=== PATIENT | female | born 1955 | race African-American/Black ===

== ENCOUNTER 2017-03-23 10:36 | Emergency (ER) | payer SELFPAY ==
[~2017-03-23] VITALS: Ht 180.3 cm; Wt 116.0 kg
[~2017-03-23 10:36] MED LIST: EXEN2PEN SQ; GABA-290 PO; GLIP10TA10 PO; HYDR25TA PO; METF10002 PO; SIMV40TA5 PO
[2017-03-23] MEDS ORDERED: ASPIRIN 81MG TABLET PO ONE (11:00)
[2017-03-23 11:39] LABS: PROTHROMBIN TIME 10.2 sec (9.4-11.6)
[2017-03-23 11:45] LABS: BASOPHILS % 1.1 % (0.0-2.0); EOSINOPHILS % 6.2 % (0.0-5.0); HEMATOCRIT. 39.5 % (36.0-48.0); HEMOGLOBIN. 12.9 g/dL (12.0-16.0); LYMPHOCYTES % 36.3 % (20.0-50.0); MEAN CORPUSCULAR HEMOGLOBIN 27.8 pg (28.0-32.0); MEAN CORPUSCULAR VOLUME 85.3 fL (81.0-99.0); MEAN PLATELET VOLUME 11.1 fl (7.4-10.4); NEUTROPHILS % 50.4 % (40.0-76.0); PLATELET 220 x1000/uL (130-400); RED BLOOD CELL COUNT 4.63 mill/uL (4.2-5.4); RED CELL DISTRIBUTION WIDTH 13.7 % (11.6-14.6)
[2017-03-23 12:10] LABS: CARBON DIOXIDE 27 mEq/L (21-32); CHLORIDE 103 mEq/L (98-107)
[2017-03-23 12:16] LABS: TROPONIN I < 0.02 ng/mL (0.00-0.04)
[2017-03-23 15:51] VITALS: BP 113/68
== END 2017-03-23 16:42 | disposition home or self-care (01) ==
LOC: ER 10:36
DX: R07.9 Chest pain, unspecified (principal); I10 Essential (primary) hypertension; E78.00 Pure hypercholesterolemia, unspecified; E11.9 Type 2 diabetes mellitus without complications; Z88.8 Allergy status to other drugs, medicaments and biological substances
CPT/HCPCS: 36415; 71010; 80053; 83880; 84484; 85025; 85610; 93005; 99285; Z7610

== ENCOUNTER 2017-10-29 09:48 | Emergency (ER) | payer SELFPAY ==
[~2017-10-29] VITALS: Ht 180.3 cm; Wt 113.0 kg
[2017-10-29] MEDS ORDERED: TRAMADOL 50MG TABLET PO ONE (10:15)
[2017-10-29 13:30] VITALS: BP 138/78
== END 2017-10-29 13:34 | disposition home or self-care (01) ==
LOC: ER 09:48
DX: M25.561 Pain in right knee (principal); I10 Essential (primary) hypertension; M25.461 Effusion, right knee; E11.9 Type 2 diabetes mellitus without complications; E78.00 Pure hypercholesterolemia, unspecified; G89.29 Other chronic pain; Z88.1 Allergy status to other antibiotic agents; Z88.5 Allergy status to narcotic agent; Z98.51 Tubal ligation status; Z79.84 Long term (current) use of oral hypoglycemic drugs; Z90.49 Acquired absence of other specified parts of digestive tract; Z90.710 Acquired absence of both cervix and uterus
CPT/HCPCS: 73562; 93971; 99284; L1830; Z7610

== ENCOUNTER 2019-01-14 14:30 | Emergency (ER) | payer OTHER ==
[~2019-01-14] VITALS: Ht 180.3 cm; Wt 113.0 kg
[~2019-01-14 14:30] MED LIST changes: +METF-416 PO; -METF10002 PO
[2019-01-14 17:18] LABS: BASOPHILS % 1.2 % (0.0-2.0); EOSINOPHILS % 3.6 % (0.0-5.0); HEMATOCRIT. 38.5 % (36.0-48.0); HEMOGLOBIN. 12.6 g/dL (12.0-16.0); LYMPHOCYTES % 34.3 % (20.0-50.0); MEAN CORPUSCULAR HEMOGLOBIN 29.2 pg (28.0-32.0); MEAN CORPUSCULAR VOLUME 89.4 fL (81.0-99.0); MEAN PLATELET VOLUME 11.2 fl (7.4-10.4); MONOCYTES % 7.1 % (2.0-8.0); NEUTROPHILS % 53.8 % (40.0-76.0); PLATELET 235 x1000/uL (130-400); RED BLOOD CELL COUNT 4.31 mill/uL (4.2-5.4); RED CELL DISTRIBUTION WIDTH 13.6 % (11.6-14.6)
[2019-01-14 17:21] LABS: CHLORIDE 107 mEq/L (98-107)
[2019-01-14 17:44] LABS: CLARITY URINE CLEAR (CLEAR); COLOR URINE YELLOW (YELLOW); KETONES URINE TRACE (NEGATIVE); LEUKOCYTE ESTERASE URINE NEGATIVE (NEGATIVE); NITRITE URINE NEGATIVE (NEGATIVE); OCCULT BLOOD URINE NEGATIVE (NEGATIVE); PH URINE 5.5 (4.5-8.0); PROTEIN URINE NEGATIVE (NEGATIVE); SPECIFIC GRAVITY URINE 1.021 (1.005-1.030); UROBILINOGEN URINE 0.2 E.U./dL (0.2-1.0)
[2019-01-14] MEDS ORDERED: KETOROLAC 30MG/ML VIAL IV ONE (18:15)
[2019-01-14 18:35] VITALS: BP 136/81
== END 2019-01-14 19:03 | disposition home or self-care (01) ==
LOC: ER 14:30
DX: R10.31 Right lower quadrant pain (principal); R19.7 Diarrhea, unspecified; E11.9 Type 2 diabetes mellitus without complications; E78.00 Pure hypercholesterolemia, unspecified; Z90.49 Acquired absence of other specified parts of digestive tract; Z98.51 Tubal ligation status; Z90.710 Acquired absence of both cervix and uterus; Z88.8 Allergy status to other drugs, medicaments and biological substances; Z88.1 Allergy status to other antibiotic agents; Z88.6 Allergy status to analgesic agent; Z88.3 Allergy status to other anti-infective agents; Z88.2 Allergy status to sulfonamides; Z79.4 Long term (current) use of insulin
CPT/HCPCS: 36415; 74176; 80053; 81003; 83690; 85025; 85610; 96374; 99284; J1885

== ENCOUNTER 2019-01-15 11:37 | Emergency (ER) | payer OTHER ==
[~2019-01-15] VITALS: Ht 180.3 cm; Wt 113.0 kg
[2019-01-15] MEDS ORDERED: KETOROLAC 30MG/ML VIAL IV STA (16:19)
[2019-01-15] MEDS ORDERED: SODIUM CHLORIDE 0.9% 1,000 ML IV ONE (16:19)
[2019-01-15] MEDS ORDERED: ONDANSETRON HCL 4MG/2ML INJ IV STA (16:19)
[2019-01-15 16:41] LABS: BASOPHILS % 1.1 % (0.0-2.0); EOSINOPHILS % 5.2 % (0.0-5.0); HEMATOCRIT. 37.5 % (36.0-48.0); HEMOGLOBIN. 12.4 g/dL (12.0-16.0); LYMPHOCYTES % 31.8 % (20.0-50.0); MEAN CORPUSCULAR HEMOGLOBIN 29.1 pg (28.0-32.0); MEAN CORPUSCULAR VOLUME 88.2 fL (81.0-99.0); MEAN PLATELET VOLUME 10.2 fl (7.4-10.4); MONOCYTES % 6.3 % (2.0-8.0); NEUTROPHILS % 55.6 % (40.0-76.0); PLATELET 288 x1000/uL (130-400); RED BLOOD CELL COUNT 4.25 mill/uL (4.2-5.4); RED CELL DISTRIBUTION WIDTH 13.6 % (11.6-14.6)
[2019-01-15 16:45] LABS: CHLORIDE 108 mEq/L (98-107)
[2019-01-15 16:46] LABS: PROTHROMBIN TIME 10.2 sec (9.6-11.0)
[2019-01-15 18:23] LABS: CLARITY URINE CLEAR (CLEAR); COLOR URINE YELLOW (YELLOW); KETONES URINE NEGATIVE (NEGATIVE); LEUKOCYTE ESTERASE URINE NEGATIVE (NEGATIVE); NITRITE URINE NEGATIVE (NEGATIVE); OCCULT BLOOD URINE NEGATIVE (NEGATIVE); PH URINE 5.5 (4.5-8.0); PROTEIN URINE NEGATIVE (NEGATIVE); SPECIFIC GRAVITY URINE 1.023 (1.005-1.030); UROBILINOGEN URINE 0.2 E.U./dL (0.2-1.0)
[2019-01-15 19:45] VITALS: BP 154/71
== END 2019-01-15 20:39 | disposition home or self-care (01) ==
LOC: ER 11:37
DX: R10.2 Pelvic and perineal pain (principal); M54.30 Sciatica, unspecified side; I10 Essential (primary) hypertension; E11.9 Type 2 diabetes mellitus without complications; E78.00 Pure hypercholesterolemia, unspecified; Z90.710 Acquired absence of both cervix and uterus; Z88.8 Allergy status to other drugs, medicaments and biological substances; Z79.84 Long term (current) use of oral hypoglycemic drugs; Z90.49 Acquired absence of other specified parts of digestive tract
CPT/HCPCS: 36415; 76830; 76856; 80053; 81003; 83690; 85025; 85610; 93970; 96361; 96374; 99284; J1885; J7030; J2405

== ENCOUNTER 2022-01-14 17:37 | Emergency (ER) | payer OTHER ==
[~2022-01-14] VITALS: Ht 180.3 cm; Wt 107.0 kg
[~2022-01-14 17:37] MED LIST changes: +SIMV-46 PO; -SIMV40TA5 PO
[2022-01-14 17:55] VITALS: BP 118/71
[2022-01-14] MEDS ORDERED: MUPI1OIN4 TP (21:27)
[2022-01-14] MEDS ORDERED: NEOMY SULF/BACITRAC ZN/POLY OINT 28GM TOP SCH (21:30)
== END 2022-01-14 21:49 | disposition home or self-care (01) ==
LOC: ER 19:22
DX: M79.644 Pain in right finger(s) (principal); E11.9 Type 2 diabetes mellitus without complications; E78.00 Pure hypercholesterolemia, unspecified; Z90.49 Acquired absence of other specified parts of digestive tract; Z79.84 Long term (current) use of oral hypoglycemic drugs; Z98.890 Other specified postprocedural states; Z90.710 Acquired absence of both cervix and uterus; Z88.8 Allergy status to other drugs, medicaments and biological substances; Z88.3 Allergy status to other anti-infective agents
CPT/HCPCS: 99283

== ENCOUNTER 2022-02-03 13:38 | Emergency (ER) | payer OTHER ==
[~2022-02-03] VITALS: Ht 180.3 cm; Wt 106.0 kg
[~2022-02-03 13:38] MED LIST changes: +MUPI1OIN4 TP
[2022-02-03 14:02] VITALS: BP 155/74
[2022-02-03] MEDS ORDERED: BACITRACIN ZINC OINT UDPKT TOP ONE (16:00)
[2022-02-03] MEDS ORDERED: LIDOCAINE HCL 1% 20ML VIAL (Pyxis) INJ INFIL ONE (16:00)
[2022-02-03] MEDS ORDERED: DOXY-326 PO ×3 (16:59→17:24)
[2022-02-03] MEDS ORDERED: IBUP-2029 PO ×3 (16:59→17:24)
[2022-02-03] MEDS ORDERED: MUPI15CR11 TP ×3 (16:59→17:24)
== END 2022-02-03 17:30 | disposition home or self-care (01) ==
LOC: ER 14:25
DX: L03.011 Cellulitis of right finger (principal); E11.9 Type 2 diabetes mellitus without complications; Z88.8 Allergy status to other drugs, medicaments and biological substances; Z88.1 Allergy status to other antibiotic agents; Z79.899 Other long term (current) drug therapy; E78.00 Pure hypercholesterolemia, unspecified; Z98.51 Tubal ligation status; Z90.49 Acquired absence of other specified parts of digestive tract
CPT/HCPCS: 99283; J3490

== ENCOUNTER 2023-06-23 16:05 | Emergency (ER) | payer MEDICARE, OTHER ==
[~2023-06-23] VITALS: Ht 180.3 cm; Wt 108.9 kg
[~2023-06-23 16:05] MED LIST changes: +DOXY-456 PO; +IBUP-2029 PO; +MUPI15CR11 TP
[2023-06-23 16:22] VITALS: BP 129/56; PULSE 98; RESP 16; TEMP 98.2; O2SAT 99
== END 2023-06-23 18:55 | disposition left against medical advice (07) ==
LOC: ER 16:05
DX: Z53.21 Procedure and treatment not carried out due to patient leaving prior to being seen by health care provider (principal)
CPT/HCPCS: 99281

== ENCOUNTER 2024-02-21 13:38 | Emergency (ER) | payer MEDICARE, OTHER ==
[~2024-02-21] VITALS: Ht 175.3 cm; Wt 107.0 kg
[2024-02-21 13:50] VITALS: TEMP 98.6; O2SAT 98
[2024-02-21 14:45] LABS: BASOPHILS % 0.4 % (0.0-2.0); EOSINOPHILS % 5.4 % (0.0-5.0); HEMOGLOBIN. 11.8 g/dL (12.0-16.0); LYMPHOCYTES % 36.4 % (20.0-50.0); MEAN CORPUSCULAR HEMOGLOBIN 28.3 pg (28.0-32.0); MEAN CORPUSCULAR HGB CONC 31.8 g/dL (31.0-37.0); MEAN CORPUSCULAR VOLUME 89.1 fL (81.0-99.0); MEAN PLATELET VOLUME 10.1 fl (7.4-10.4); MONOCYTES % 6.4 % (2.0-8.0); NEUTROPHILS % 51.4 % (40.0-76.0); PLATELET 255 x1000/uL (130-400); RED BLOOD CELL COUNT 4.15 mill/uL (4.2-5.4); RED CELL DISTRIBUTION WIDTH 14.6 % (11.6-14.6); WHITE BLOOD COUNT 7.4 x1000/uL (4.5-11.0)
[2024-02-21 14:51] LABS: CHLORIDE 107 mEq/L (98-107); POTASSIUM 4.6 mEq/L (3.5-5.1); SODIUM 138 mEq/L (136-145)
[2024-02-21 14:52] LABS: CARBON DIOXIDE 29 mEq/L (21-32)
[2024-02-21 14:53] LABS: CALCIUM 9.5 mg/dL (8.7-10.4)
[2024-02-21 14:57] LABS: CREATININE 1.1 mg/dL (0.6-1.0); GLUCOSE 160 mg/dL (70-105)
[2024-02-21 14:58] LABS: UREA NITROGEN BLOOD 17 mg/dL (9-23)
[2024-02-21 15:44] VITALS: BP 129/66; PULSE 66; RESP 16
== END 2024-02-21 15:47 | disposition home or self-care (01) ==
LOC: ER 13:38
DX: R60.9 Edema, unspecified (principal); E78.00 Pure hypercholesterolemia, unspecified; E11.9 Type 2 diabetes mellitus without complications; Z88.8 Allergy status to other drugs, medicaments and biological substances; Z88.1 Allergy status to other antibiotic agents; Z88.5 Allergy status to narcotic agent; Z79.899 Other long term (current) drug therapy; Z90.49 Acquired absence of other specified parts of digestive tract; Z98.51 Tubal ligation status; Z90.710 Acquired absence of both cervix and uterus
CPT/HCPCS: 36415; 71045; 80048; 83880; 85025; 93970; 99284

== ENCOUNTER 2024-04-01 21:25 | Emergency (ER) | payer MEDICARE, OTHER ==
[~2024-04-01] VITALS: Ht 180.3 cm; Wt 106.0 kg
[~2024-04-01 21:25] MED LIST changes: -DOXY-456 PO; +DOXY100C74 PO
[2024-04-01 21:49] VITALS: O2SAT 100
[2024-04-01] MEDS ORDERED: ACETAMINOPHEN 325MG TABLET PO ONE (22:00)
[2024-04-01] MEDS ORDERED: CYCLOBENZAPRINE 10MG TABLET PO ONE (22:00)
[2024-04-01 23:10] VITALS: BP 133/74; PULSE 83; RESP 16; TEMP 36.66960; O2SAT 100
[2024-04-01] MEDS: ACETAMINOPHEN 325MG TABLET PO NR (23:32)
[2024-04-01] MEDS: CYCLOBENZAPRINE 10MG TABLET PO NR (23:33)
== END 2024-04-01 23:50 | disposition home or self-care (01) ==
LOC: ER 21:25
DX: S90.31XA Contusion of right foot, initial encounter (principal); S20.212A Contusion of left front wall of thorax, initial encounter; E11.9 Type 2 diabetes mellitus without complications; E78.00 Pure hypercholesterolemia, unspecified; Z79.899 Other long term (current) drug therapy; Z98.51 Tubal ligation status; Z90.710 Acquired absence of both cervix and uterus; Z90.49 Acquired absence of other specified parts of digestive tract; Z88.8 Allergy status to other drugs, medicaments and biological substances; W18.39XA Other fall on same level, initial encounter; Y93.89 Activity, other specified; Y92.89 Other specified places as the place of occurrence of the external cause; Y99.8 Other external cause status
CPT/HCPCS: 71101; 73630; 99284

== ENCOUNTER 2024-06-14 08:39 | Emergency (ER) | payer MEDICARE, OTHER ==
[~2024-06-14] VITALS: Ht 180.3 cm; Wt 100.0 kg
[~2024-06-14 08:39] MED LIST changes: -GLIP10TA10 PO; +GLIP10TA17 PO
[2024-06-14 08:44] VITALS: O2SAT 100
[2024-06-14 08:52] VITALS: BP 150/68; PULSE 71; RESP 16; TEMP 99.5; O2SAT 100
[2024-06-14] MEDS ORDERED: FLUC100T42 PO (09:12)
[2024-06-14] MEDS ORDERED: CLIN-194 PO (09:12)
== END 2024-06-14 09:43 | disposition home or self-care (01) ==
LOC: ER 08:39
DX: J02.9 Acute pharyngitis, unspecified (principal); E78.00 Pure hypercholesterolemia, unspecified; E11.9 Type 2 diabetes mellitus without complications; Z88.0 Allergy status to penicillin; Z88.1 Allergy status to other antibiotic agents; Z88.5 Allergy status to narcotic agent; Z88.8 Allergy status to other drugs, medicaments and biological substances; Z79.899 Other long term (current) drug therapy; Z90.49 Acquired absence of other specified parts of digestive tract; Z90.710 Acquired absence of both cervix and uterus; Z98.51 Tubal ligation status
CPT/HCPCS: 99283

== ENCOUNTER 2024-06-17 11:17 | Emergency (ER) | payer MEDICARE, OTHER ==
[~2024-06-17] VITALS: Ht 180.3 cm; Wt 109.0 kg
[~2024-06-17 11:17] MED LIST changes: +CLIN-194 PO; +FLUC100T42 PO
[2024-06-17 11:21] VITALS: O2SAT 100
[2024-06-17 11:28] VITALS: BP 127/61; PULSE 80; RESP 16; TEMP 98.2; O2SAT 100
== END 2024-06-17 14:00 | disposition home or self-care (01) ==
LOC: ER 11:17
DX: J02.8 Acute pharyngitis due to other specified organisms (principal); B97.89 Other viral agents as the cause of diseases classified elsewhere; E11.9 Type 2 diabetes mellitus without complications; E78.00 Pure hypercholesterolemia, unspecified; Z79.899 Other long term (current) drug therapy; Z90.710 Acquired absence of both cervix and uterus; Z90.49 Acquired absence of other specified parts of digestive tract; Z98.51 Tubal ligation status; Z88.0 Allergy status to penicillin; Z88.1 Allergy status to other antibiotic agents; Z88.5 Allergy status to narcotic agent; Z88.8 Allergy status to other drugs, medicaments and biological substances
CPT/HCPCS: 99281

== ENCOUNTER 2024-11-20 21:01 | Emergency (ER) | payer MEDICARE, OTHER ==
[~2024-11-20] VITALS: Ht 172.7 cm; Wt 110.0 kg
[~2024-11-20 21:01] MED LIST changes: +DOXY-461 PO; -DOXY100C74 PO
[2024-11-20 21:14] VITALS: O2SAT 100
[2024-11-20 21:51] VITALS: BP 146/71; PULSE 67; RESP 18; TEMP 36.7; O2SAT 99
[2024-11-20] MEDS ORDERED: TETANUS AND DIPHTHERIA TOX/PF 0.5ML SYR (ADULT) IM ONE (22:00)
[2024-11-20] MEDS: TETANUS, DIPHTHERIA, PERTUSSIS VAC/PF 0.5ML (>10YR OLD) IM ONE (22:20)
== END 2024-11-20 23:04 | disposition home or self-care (01) ==
LOC: ER 21:01
DX: S61.411A Laceration without foreign body of right hand, initial encounter (principal); E11.9 Type 2 diabetes mellitus without complications; Z88.0 Allergy status to penicillin; Z88.1 Allergy status to other antibiotic agents; Z88.5 Allergy status to narcotic agent; Z88.8 Allergy status to other drugs, medicaments and biological substances; Z79.899 Other long term (current) drug therapy; W26.0XXA Contact with knife, initial encounter; Y93.89 Activity, other specified; Y92.89 Other specified places as the place of occurrence of the external cause; Y99.8 Other external cause status
CPT/HCPCS: 90471; 90714; 90715; 99283

== ENCOUNTER 2025-02-22 17:57 | Emergency (ER) | payer MEDICARE, OTHER ==
[~2025-02-22] VITALS: Ht 180.3 cm; Wt 77.0 kg
[2025-02-22 18:06] VITALS: TEMP 37; O2SAT 99
[2025-02-22] MEDS ORDERED: DOXY100C5 MT (19:35)
[2025-02-22] MEDS ORDERED: MUPI22OI2 TP (19:35)
[2025-02-22] MEDS ORDERED: CEPH500C2 MT (19:35)
[2025-02-22] MEDS ORDERED: ACET-2708 MT (19:35)
[2025-02-22 19:44] VITALS: BP 116/75; PULSE 82; RESP 14; O2SAT 99
[2025-02-22] MEDS ORDERED: FLUC150T46 MT (19:58)
== END 2025-02-22 20:03 | disposition home or self-care (01) ==
LOC: ER 18:09
DX: M79.674 Pain in right toe(s) (principal); E11.42 Type 2 diabetes mellitus with diabetic polyneuropathy; Z79.899 Other long term (current) drug therapy; Z88.0 Allergy status to penicillin; Z88.1 Allergy status to other antibiotic agents; Z88.5 Allergy status to narcotic agent; Z88.8 Allergy status to other drugs, medicaments and biological substances
CPT/HCPCS: 99283

== ENCOUNTER 2025-02-27 17:03 | Inpatient (IN) | payer MEDICARE, OTHER ==
[~2025-02-27] VITALS: Ht 180.3 cm; Wt 114.3 kg
[~2025-02-27 17:03] MED LIST changes: +ACET-2708 MT; +CEPH500C2 MT; +DOXY100C5 MT; +FLUC150T46 MT; +MUPI22OI2 TP
[2025-02-27 17:19] VITALS: O2SAT 100
[2025-02-27 19:54] LABS: BASOPHILS % 0.4 % (0.0-2.0); EOSINOPHILS % 5.0 % (0.0-5.0); HEMATOCRIT. 37.6 % (36.0-48.0); HEMOGLOBIN. 12.4 g/dL (12.0-16.0); LYMPHOCYTES % 30.3 % (20.0-50.0); MEAN PLATELET VOLUME 10.7 fl (7.4-10.4); MONOCYTES % 7.2 % (2.0-8.0); NEUTROPHILS % 57.1 % (40.0-76.0); PLATELET 244 x1000/uL (130-400); RED BLOOD CELL COUNT 4.33 mill/uL (4.2-5.4); RED CELL DISTRIBUTION WIDTH 14.0 % (11.6-14.6)
[2025-02-27 20:05] LABS: CREATININE 1.4 mg/dL (0.6-1.0); INR 1.0
[2025-02-27 20:06] LABS: UREA NITROGEN BLOOD 25 mg/dL (9-23)
[2025-02-27 20:07] LABS: ASPARTATE AMINOTRANSFERASE 27 IU/L (<34)
[2025-02-27 20:08] LABS: BILIRUBIN DIRECT 0.2 mg/dL (<=3.0); BILIRUBIN TOTAL 0.6 mg/dL (0.1-1.0); PROTEIN TOTAL 6.7 g/dL (6.0-8.3)
[2025-02-27 20:35] LABS: ERYTHROCYTE SEDIMENTATION RATE 22 mm/hr (0-30)
[2025-02-28] MEDS ORDERED: CLONIDINE 0.1MG TABLET PO PRN
[2025-02-28] MEDS ORDERED: ACETAMINOPHEN 325MG TABLET PO PRN
[2025-02-28] MEDS ORDERED: MAGNESIUM/ALUMINUM HYDROXIDE/SIMETHICONE 30ML UDC PO PRN
[2025-02-28] MEDS ORDERED: ONDANSETRON HCL 4MG/2ML INJ IV PRN
[2025-02-28] MEDS ORDERED: ZOLPIDEM TARTRATE 5MG TABLET PO PRN
[2025-02-28] MEDS: SODIUM CHLORIDE 0.9% 1,000 ML IV SCH
[2025-02-28] MEDS ORDERED: DEXTROSE 50% WATER 50ML SYRINGE IV PRN ×2
[2025-02-28] MEDS ORDERED: NALOXONE HCL 0.4MG/ML VIAL IV PRN (00:15)
[2025-02-28] MEDS ORDERED: HYDROCODONE/ACETAMINOPHEN 5/325MG TABLET PO PRN ×2 (00:15)
[2025-02-28 00:45] VITALS: BP 126/72; PULSE 80; RESP 18; TEMP 36.6; TEMP 36.6404; O2SAT 100
[2025-02-28] MEDS: BLOOD SUGAR DIAGNOSTIC STRIP TEST SCH (06:15)
[2025-02-28] MEDS: INSULIN LISPRO 100 UNITS/ML SUBCUT SCH (06:15)
[2025-02-28 07:41] LABS: BASOPHILS % 0.5 % (0.0-2.0); EOSINOPHILS % 6.3 % (0.0-5.0); HEMATOCRIT. 35.4 % (36.0-48.0); HEMOGLOBIN. 11.6 g/dL (12.0-16.0); LYMPHOCYTES % 36.3 % (20.0-50.0); MEAN PLATELET VOLUME 10.8 fl (7.4-10.4); MONOCYTES % 8.1 % (2.0-8.0); NEUTROPHILS % 48.8 % (40.0-76.0); PLATELET 225 x1000/uL (130-400); RED BLOOD CELL COUNT 4.08 mill/uL (4.2-5.4); RED CELL DISTRIBUTION WIDTH 14.3 % (11.6-14.6)
[2025-02-28 08:00] VITALS: BP 121/67; PULSE 63; RESP 18; TEMP 36.6; O2SAT 99
[2025-02-28 08:11] LABS: CREATININE 1.1 mg/dL (0.6-1.0); UREA NITROGEN BLOOD 23 mg/dL (9-23)
[2025-02-28 08:13] LABS: TROPONIN I HIGH SENSITIVITY 5 ng/L (3.0-34)
[2025-02-28] MEDS ORDERED: INSULIN LISPRO 100 UNITS/ML SUBCUT SCH (08:20)
[2025-02-28] MEDS ORDERED: BLOOD SUGAR DIAGNOSTIC STRIP TEST SCH (09:00)
[2025-02-28] MEDS: PANTOPRAZOLE SODIUM 40 MG/VIAL IV SCH (09:26)
[2025-02-28] MEDS: ENOXAPARIN 40MG/0.4ML SYR SUBCUT SCH (09:26)
[2025-02-28 12:00] VITALS: BP 124/65; PULSE 78; RESP 16; TEMP 36.8; O2SAT 100
[2025-02-28 16:00] VITALS: BP 133/71; PULSE 78; RESP 16; TEMP 36.8; O2SAT 99
== END 2025-02-28 19:51 | disposition left against medical advice (07) | DRG 603 ==
LOC: ER 17:03 → EDBEDREQTM 21:31 → EDBEDREQ 21:31 → ENRESERV 23:47 → 5WST 02-28 01:49
PROVIDERS: ADMIT Internal Medicine; ATTEND Internal Medicine
DX: L03.031 Cellulitis of right toe (principal); N17.9 Acute kidney failure, unspecified; E11.69 Type 2 diabetes mellitus with other specified complication; E11.40 Type 2 diabetes mellitus with diabetic neuropathy, unspecified; Z53.29 Procedure and treatment not carried out because of patient's decision for other reasons; E78.5 Hyperlipidemia, unspecified; I10 Essential (primary) hypertension; Z88.0 Allergy status to penicillin; M19.071 Primary osteoarthritis, right ankle and foot; Z79.4 Long term (current) use of insulin; Z88.5 Allergy status to narcotic agent; Z90.710 Acquired absence of both cervix and uterus
CPT/HCPCS: 36415; 73630; 80048; 80076; 82962; 83735; 84443; 84484; 85025; 85651; 93970; 99285; J1650; J1815; J2470